=== PATIENT | female | born 1945 | race Caucasian/White ===

== ENCOUNTER 2017-05-29 11:31 | Emergency (ER) | payer BC ==
[~2017-05-29] VITALS: Ht 162.6 cm; Wt 61.4 kg
[2017-05-29] VITALS (9 sets, daily range): BP systolic 130–177; BP diastolic 71–94; PULSE 62–80; TEMP 36.8; O2SAT 94–100; Ht 162.6 cm; Wt 61.4 kg
[2017-05-29] MEDS ORDERED: PROPOFOL IV EMULSION 10 MG/ML 20 ML VIAL IV STA (12:06)
[2017-05-29] MEDS ORDERED: SODIUM CHLORIDE 0.9% 500ML 500 ML IV STA (12:06)
[2017-05-29] MEDS ORDERED: HYDROmorphone INJ 0.5 MG/0.5 ML SYR IV STA ×2 (12:06→13:06)
[2017-05-29] MEDS ORDERED: METOCLOPRAMIDE HCL INJ 5 MG/ML 2 ML VIAL IV STA (12:06)
[2017-05-29] MEDS ORDERED: KETAMINE HCL INJ 50 MG/ML 10 ML VIAL IV STA (12:06)
--- NOTE | 2017-05-29 12:07 | EMERGENCY ROOM VISIT NOTE ---
History Report prepared by Carmella: Anais Núñez Under the Supervision of: Dr. Gurvinder Fisher M.D. First contact with patient: 11:48 Chief Complaint: HIP PAIN Stated Complaint: FALL/ HIP PAIN History of Present Illness The patient is a 72 year old female who presents to the Emergency Room with complaints of persistent right hip pain that began prior to arrival. She currently rates her discomfort as a 2/10 in severity. The patient reports a long history of right hip issues. She states that in January 2013 she had a total right hip replacement. The patient states that one year later she dislocated her right hip twice. She states that in January 2014 she had a more restricted right hip replacement, but states that in April 2016 she dislocated her right hip again. The patient states that she last ate 5 spoons of oatmeal around 0400. She reports increased pain with movement. Source of History: patient Onset: prior to arrival Position: other (right hip) Symptom Intensity: 2/10 Timing: other (persistent) Modifying Factors (Worsening): movement Review of Systems See HPI for pertinent positives & negatives. A total of 10 systems reviewed and were otherwise negative. Past Medical & Surgical Surgical Problems: (1) History of right hip replacement Family History No pertinent family history stated. Social History Smoking Status: Never Smoker Marital Status: Housing Status: lives with significant other Occupation Status: retired Current/Historical Medications Scheduled Amlodipine (Norvasc), 5 MG PO DAILY Aspirin (Aspirin Ec), 81 MG PO Q2D Cholecalciferol (Vitamin D), 1,000 UNIT PO DAILY Latanoprost (Xalatan 0.005% Oph Penny), 1 DROPS OP HS Lisinopril/Hctz (Zestoretic 20MG/25MG), 1 TAB PO QAM Meloxicam (Meloxicam), 15 MG PO DAILY Metoprolol Succinate (Toprolxl (Toprol-Xl), 200 MG PO DAILY Multivitamins/Minerals (Mvi With Minerals), 1 TAB PO DAILY Omeprazole (Prilosec), 20 MG PO DAILY Pravastatin Sod (Pravastatin Sodium), 40 MG PO HS Scheduled PRN Tramadol HCl (Tramadol HCl), 50 MG PO Q12 PRN for Pain Allergies Coded Allergies: No Known Allergies (Unverified , 05/29/17) Physical Exam Vital Signs Date Time Temp Pulse Resp B/P (MAP) Pulse Ox O2 Delivery O2 Flow Rate FiO2 05/29/17 16:30 64 18 130/71 94 05/29/17 16:00 64 18 130/71 94 Room Air 05/29/17 14:37 68 18 157/80 97 Room Air 05/29/17 14:32 62 16 169/86 98 Nasal Cannula 2.0 05/29/17 14:29 69 18 140/86 100 Nasal Cannula 2.0 05/29/17 14:19 77 12 147/88 98 Nasal Cannula 4.0 05/29/17 14:15 66 8 170/77 99 Nasal Cannula 4.0 05/29/17 14:13 62 10 154/84 99 Room Air 05/29/17 14:11 16 166/94 99 Nasal Cannula 2.0 05/29/17 14:10 68 05/29/17 14:00 36.8 80 16 177/81 98 Room Air 05/29/17 13:59 87 18 166/106 96 Room Air 05/29/17 13:01 64 18 172/90 98 Room Air 05/29/17 11:35 37.1 73 18 186/92 99 Room Air Physical Exam GENERAL: Patient is a healthy-appearing well-nourished female HEAD: Normocephalic atraumatic EYES: Ocular movements intact pupils equal and react to light OROPHARYNX mucous membranes are moist no exudates present no erythema or edema present NECK: Supple no nuchal rigidity CHEST: Good equal expansion LUNGS: Clear and equal to auscultation CARDIAC: Normal S1 and S2 ABDOMEN: Soft nontender no guarding BACK: No CVA tenderness EXTREMITIES: Right leg is shortened, externally rotated, is neurovascularly intact. No pain upon palpation normal muscle strength in all groups no clubbing cyanosis or edema NEURO: Patient is following commands and answering questions appropriately. Alert and oriented x3 Cranial Nerves 2-12 grossly intact Medical Decision & Procedures ER Provider Diagnostic Interpretation: X-ray results as stated below per interpretation by me and the radiologist: RIGHT PELVIS/UNILATERAL HIP 2-3VIEWS CLINICAL HISTORY: 72 years-old Female presenting with RT HIP PAIN Right. TECHNIQUE: Single frontal view of the pelvis and frontal and crosstable lateral views of the right hip were obtained. COMPARISON: None. FINDINGS: Dislocation of the femoral head component of the total right hip arthroplasty. The femoral head has displaced proximally and posteriorly. No radiographic evidence of fracture or additional hardware complication. Degenerative changes of the pubic symphysis. Radiodensity projects over the left ilium, which may represent a sclerotic focus within the bone, such as a bone island, or hyperdense material within the bowel. Degenerative changes in the lumbar spine. Abnormal contour of the superior aspect of the left femoral neck appears to be a separate osseous fragment and is not clearly connected to the femoral neck. This raises concern for a fracture fragment, possibly emanating from the posterior wall lower posterior aspect of the left femur. Moderate stool burden in the right colon noted. IMPRESSION: 1. Dislocation of the right femoral head component from the total right hip arthroplasty. 2. Abnormal osseous recommended along the superior left femoral neck. This may represent a fracture fragment such as that emanating from the posterior wall, but this is indeterminate. Further evaluation with noncontrast CT of the pelvis is suggested. Electronically signed by: Mann Yan M.D. 05/29/2017 1:04 PM Dictated Date/Time: 05/29/2017 12:59 PM RIGHT HIP UNILATERAL 2 VIEWS CLINICAL HISTORY: 72 years-old Female presenting with post reduction Right. TECHNIQUE: Frontal and crosstable lateral views of the right hip were obtained. COMPARISON: 05/29/2017 at 12:48 PM. FINDINGS: Interval reduction of the previously dislocated right femoral head component of the total right hip arthroplasty. No acute fracture or hardware complication is evident. IMPRESSION: No malalignment status post reduction. No hardware complication. Electronically signed by: Mann Yan M.D. 05/29/2017 3:01 PM Dictated Date/Time: 05/29/2017 3:00 PM Medications Administered Medications (Trade) Dose Ordered Sig/Ivelisse Route Start Time Stop Time Status Last Admin Dose Admin Metoclopramide HCl (Reglan Inj) 10 mg NOW STAT IV 05/29/17 12:06 05/29/17 12:08 DC 05/29/17 12:20 10 MG Hydromorphone HCl (Dilaudid Inj) 0.5 mg NOW STAT IV 05/29/17 12:06 05/29/17 12:08 DC 05/29/17 12:21 0.5 MG Sodium Chloride 500 ml @ 999 mls/hr Q31M STAT IV 05/29/17 12:06 05/29/17 12:36 DC 05/29/17 12:20 999 MLS/HR Hydromorphone HCl (Dilaudid Inj) 0.5 mg NOW STAT IV 05/29/17 13:06 05/29/17 13:07 DC 05/29/17 13:06 0.5 MG Ondansetron HCl (Zofran Inj) 4 mg NOW STAT IV 05/29/17 13:06 05/29/17 13:07 DC 05/29/17 14:11 4 MG Ondansetron HCl (Zofran Odt) 4 mg ONE STAT PO 05/29/17 16:23 05/29/17 16:24 DC 05/29/17 16:27 4 MG Ondansetron HCl (ZOFRAN ODT 4MG Home Pack) 1 homepack UD ONCE PO 05/29/17 16:30 05/29/17 16:31 DC 05/29/17 16:28 1 HOMEPACK Procedure Procedural Sedation Indication right hip dislocation. Total time: 30 minutes. Written consent was obtained after the risks and benefits were explained to the patient, including, but not limited to aspiration, allergic reaction, breathing difficulties, cardiac complications, vomiting, pain, event recall, bleeding, and /or infection. Pre-sedation examination and paperwork completed. The patient was on 100% oxygen via NRB prior to the procedure. Continuous end tidal CO2 monitoring, pulse oximetry, and cardiac monitoring were utilized. Suction, airway equipment, medications, respiratory equipment, and appropriate personnel were prepared prior to the initiation of the procedure. A time out was taken. Sedation was achieved utilizing 30 mg of Ketamine and 30 x2 of Propofol. After I observed the patient had reached the appropriate level of sedation the main procedure was performed without complication. Sedation was discontinued and the monitoring continued. The patient recovered quickly from the effects of the medication without complication or adverse event. ED Course 1200: Past medical records reviewed. The patient was evaluated in room B2. A complete history and physical examination was performed. 1206: Ordered Propofol 30 mg IV, Ketamine HCl 30 mg IV, Sodium Chloride 500 ml @ 999 mls/hr IV, Dilaudid Inj 0.5 mg IV, Reglan Inj 10 mg IV. 1219: I discussed the patients case with Dr. Dawn, Orthopedics. He will look at the x-rays when they are complete. 1306: Ordered Zofran Inj 4 mg IV, Dilaudid Inj 0.5 mg IV. 1410: The patient's right hip dislocation was reduced by Dr. Dawn, Orthopedics at this time while I performed the procedural sedation. See procedure note for further detail. 1445: I reevaluated the patient and she is doing well. I discussed the exam findings with her and I discussed the treatment plan. She verbalized complete understanding and agreement. She is ready to go home shortly. 1623: Ordered Zofran Odt 4 mg PO. 1630: Ordered Ondansetron HCl 1 homepack PO. Medical Decision Differential diagnosis: Etiologies such as fracture, dislocation, neurovascular compromise, compartment syndrome, soft tissue injury, as well as others were entertained. This is a 72-year-old female who presents emergency department complaining of hip dislocation. The patient has a history of revision and has dislocated this hip previously. An IV was established, the patient given Reglan, Dilaudid. She has been fasting for 8 hours. X-ray shows a dislocated right hip. I did discuss the case with Dr. Dawn who agreed to reduce the hip while the patient was consciously sedated as above. I do believe that the patient as well as to be discharged home for follow-up with her orthopedic surgeon. Patient and family were in agreement with the treatment plan. Medication Reconcilliation Current Medication List: was personally reviewed by me Blood Pressure Screening Patient's blood pressure: Elevated blood pressure Blood pressure disposition: Referred to PCP Consults Time Called: 1208 Consulting Physician: Dr. Dawn, Orthopedics Returned Call: [phone] I discussed the patients case with Dr. Dawn, Orthopedics. He will look at the x-rays when they are complete. Impression Primary Impression: Dislocation of hip joint prosthesis Scribe Attestation The scribe's documentation has been prepared under my direction and personally reviewed by me in its entirety. I confirm that the note above accurately reflects all work, treatment, procedures, and medical decision making performed by me. Departure Information Dispostion Home / Self-Care Forms Adult Anesthesia/Sedation, HOME CARE DOCUMENTATION FORM, IMPORTANT VISIT INFORMATION, WORK / SCHOOL INSTRUCTIONS Patient Instructions ED Sedation Procedural Discon, [facility] Additional Instructions NEED Follow up with orthopaedic surgeon at home You were found to have an elevated blood pressure today (>120 sytolic or >90 diastolic). Per medicare guidelines, you need to follow up with this blood pressure screening with your Primary Care Physician (PCP). For a new PCP call [phone]. You have been examined and treated today on an emergency basis only. This is not a substitute for, or an effort to provide, complete comprehensive medical care. It is impossible to recognize and treat all injuries or illnesses in a single emergency department visit. It is therefore important that you follow up closely with your PCP. Call as soon as possible for an appointment. Thank you for your time and consideration. I look forward to speaking with you again soon. Please don't hesitate to call us if you have any questions. Problem Qualifiers Primary Impression: Dislocation of hip joint prosthesis Encounter type: initial encounter Qualified Codes: T84.029A - Dislocation of unspecified internal joint prosthesis, initial encounter; Z96.649 - Presence of unspecified artificial hip joint
[2017-05-29] MEDS ORDERED: METO1TAB71 PO (12:42)
[2017-05-29] MEDS ORDERED: LATA0.5S OP (12:42)
[2017-05-29] MEDS ORDERED: CHOL100010 PO (12:42)
[2017-05-29] MEDS ORDERED: MELO15TA4 PO (12:42)
[2017-05-29] MEDS ORDERED: AMLO-110 PO (12:42)
[2017-05-29] MEDS ORDERED: PRVC/40 PO (12:42)
[2017-05-29] MEDS ORDERED: ULT50 PO (12:42)
[2017-05-29] MEDS ORDERED: ASPI81TA28 PO (12:42)
[2017-05-29] MEDS ORDERED: MULT-513 PO (12:42)
[2017-05-29] MEDS ORDERED: PRLSR20 PO (12:42)
[2017-05-29] MEDS ORDERED: LISI-788 PO (12:42)
--- NOTE | 2017-05-29 13:05 | DIAGNOSTIC IMAGING REPORT ---
RIGHT PELVIS/UNILATERAL HIP 2-3VIEWS CLINICAL HISTORY: 72 years-old Female presenting with RT HIP PAIN Right. TECHNIQUE: Single frontal view of the pelvis and frontal and crosstable lateral views of the right hip were obtained. COMPARISON: None. FINDINGS: Dislocation of the femoral head component of the total right hip arthroplasty. The femoral head has displaced proximally and posteriorly. No radiographic evidence of fracture or additional hardware complication. Degenerative changes of the pubic symphysis. Radiodensity projects over the left ilium, which may represent a sclerotic focus within the bone, such as a bone island, or hyperdense material within the bowel. Degenerative changes in the lumbar spine. Abnormal contour of the superior aspect of the left femoral neck appears to be a separate osseous fragment and is not clearly connected to the femoral neck. This raises concern for a fracture fragment, possibly emanating from the posterior wall lower posterior aspect of the left femur. Moderate stool burden in the right colon noted. IMPRESSION: 1. Dislocation of the right femoral head component from the total right hip arthroplasty. 2. Abnormal osseous recommended along the superior left femoral neck. This may represent a fracture fragment such as that emanating from the posterior wall, but this is indeterminate. Further evaluation with noncontrast CT of the pelvis is suggested. Electronically signed by: Mann Yan M.D. 05/29/2017 1:04 PM Dictated Date/Time: 05/29/2017 12:59 PM
[2017-05-29] MEDS ORDERED: ONDANSETRON INJ 2 MG/ML 2 ML VIAL IV STA (13:06)
--- NOTE | 2017-05-29 14:26 | Orthopedic Consultation ---
Orthopedic Consultation Date of Consultation: May 29, 2017. Attending Physician: Reason for Consultation: R STORMY dislocation History of Present Illness Patient is from [place] and is visiting locally. Had STORMY in 2012, had several dislocations. Revised to constrained liner several years ago. Had one more dislocation last year after revision and was reduced under sedation. She was crawling on the floor looking for something under the couch and had another dislocation Social History Smoking Status: Never Smoker Marital Status: Housing Status: lives with significant other Occupation Status: retired Allergies Coded Allergies: No Known Allergies (Unverified , 05/29/17) Home Medications Scheduled Amlodipine (Norvasc), 5 MG PO DAILY Aspirin (Aspirin Ec), 81 MG PO Q2D Cholecalciferol (Vitamin D), 1,000 UNIT PO DAILY Latanoprost (Xalatan 0.005% Oph Penny), 1 DROPS OP HS Lisinopril/Hctz (Zestoretic 20MG/25MG), 1 TAB PO QAM Meloxicam (Meloxicam), 15 MG PO DAILY Metoprolol Succinate (Toprolxl (Toprol-Xl), 200 MG PO DAILY Multivitamins/Minerals (Mvi With Minerals), 1 TAB PO DAILY Omeprazole (Prilosec), 20 MG PO DAILY Pravastatin Sod (Pravastatin Sodium), 40 MG PO HS Scheduled PRN Tramadol HCl (Tramadol HCl), 50 MG PO Q12 PRN for Pain Review of Systems Constitutional: No fever Physical Exam Date Time Temp Pulse Resp B/P (MAP) Pulse Ox O2 Delivery O2 Flow Rate FiO2 05/29/17 14:10 68 05/29/17 14:00 36.8 80 16 177/81 98 Room Air 05/29/17 13:59 87 18 166/106 96 Room Air 05/29/17 13:01 64 18 172/90 98 Room Air 05/29/17 11:35 37.1 73 18 186/92 99 Room Air General Appearance: + mild distress Head: normocephalic Eyes: normal inspection Respiratory/Chest: chest non-tender Cardiovascular: regular rate, rhythm Extremities/Musculoskelatal: + pertinent finding (RLE shortening and internally rotated, 2+ DP pulse, lt sens/moter fxn intact) Assessment & Plan R STORMY dislocation Previously had STORMY and then revision to constrained liner. This is second dislocation after revision. Closed reduction in ED under sedation. Reduced relatively easily. Knee immobilizer, hip precautions F/U with treating Orthopedic surgeon at home
--- NOTE | 2017-05-29 14:28 | [facility] Operative Report ---
Operative Report Operative Date May 29, 2017. Pre-Operative Diagnosis Right STORMY dislocation Post-Operative Diagnosis same Procedure(s) Performed closed reduction R STORMY dislocation Surgeon Nereyda Professor Of Violin Surgeon(s) 0 Estimated Blood Loss 0 Findings above Fluids 0 Specimens 0 Drains 0 Anesthesia moderate sedation per Dr. Fisher Complication(s) None Disposition ED Indications 72 yo female s/p revision STORMY to constrained liner for instability with now second dislocation after revision. Wishes to proceed with closed reduction. Description of Procedure Risks benefits and alternatives to the procedure were discussed including but not limited to pain, stiffness, fracture, failure to achieve reduction, need for later surgery, damage to blood vessels, damage to nerves, risks of the anesthesia were discussed and they wished to proceed. The patient was identified. The laterality was confirmed. The patient was given sedation. Once there properly sedated I performed a closed reduction pulling 90/90 traction. There was a palpable and audible clunk. The leg lengths were restored. There is good motion at the hip. Post reduction x-rays were obtained and demonstrated adequate reduction of the total hip dislocation. I attest to the content of the Intraoperative Record and any orders documented therein. Any exceptions are noted below.
--- NOTE | 2017-05-29 15:02 | DIAGNOSTIC IMAGING REPORT ---
RIGHT HIP UNILATERAL 2 VIEWS CLINICAL HISTORY: 72 years-old Female presenting with post reduction Right. TECHNIQUE: Frontal and crosstable lateral views of the right hip were obtained. COMPARISON: 05/29/2017 at 12:48 PM. FINDINGS: Interval reduction of the previously dislocated right femoral head component of the total right hip arthroplasty. No acute fracture or hardware complication is evident. IMPRESSION: No malalignment status post reduction. No hardware complication. Electronically signed by: Mann Yan M.D. 05/29/2017 3:01 PM Dictated Date/Time: 05/29/2017 3:00 PM
[2017-05-29] MEDS ORDERED: ONDANSETRON 4MG OD TAB PO STA (16:23)
[2017-05-29] MEDS ORDERED: ONDANSETRON HOME PACK 4MG OD TAB PO ONE (16:30)
== END 2017-05-29 16:30 | disposition home or self-care (01) ==
LOC: EDBD 11:31 → C.EDB 11:33
DX: T84.020A Dislocation of internal right hip prosthesis, initial encounter (principal); X58.XXXA Exposure to other specified factors, initial encounter; Z96.641 Presence of right artificial hip joint; Z79.82 Long term (current) use of aspirin